=== PATIENT | female | born 1995 | race Caucasian/White ===

== ENCOUNTER → 2016-05-31 | Outpatient (CLI) | payer BC, OTHER ==
[2016-05-31 17:53] LABS: HEMOGLOBIN 14.3 gm/dl (12.3-15.3); RED BLOOD COUNT 4.64 M/UL (4.00-5.10); WHITE BLOOD COUNT 9.9 K/UL (4.5-11.0)
[2016-05-31 18:19] LABS: BUN/CREATININE RATIO 24 (0-10)
== END ==
LOC: LAB 17:11
PROVIDERS: Nurse Practitioner Family
DX: E55.9 Vitamin D deficiency, unspecified (principal); M62.3 Immobility syndrome (paraplegic); R06.02 Shortness of breath
CPT/HCPCS: 36415; 80048; 80076; 82607; 84443; 85025; 85379

== ENCOUNTER 2016-07-03 18:02 | Emergency (ER) | payer BC, OTHER | END 2016-07-03 19:25 | disposition left against medical advice (07) | LOC: ER1 18:02 | DX: Z53.21 Procedure and treatment not carried out due to patient leaving prior to being seen by health care provider (principal) ==